=== PATIENT | female | born 1935 | race Caucasian/White ===

== ENCOUNTER 2017-09-19 09:39 | Outpatient (CLI) | payer MEDICARE ==
[~2017-09-19 09:39] MED LIST: ADV50100 PO; ALBU18HF2 PO; GABA-532 PO; LEVO50TA8 PO
[2017-09-19 10:18] LABS: BASOPHILS # (AUTO) 0.1 X10'3 (0-0.2); BASOPHILS % (AUTO) 1.1 % (0-1); EOSINOPHILS # (AUTO) 0.1 X10'3 (0-0.9); EOSINOPHILS % (AUTO) 1.7 % (0-6); LYMPHOCYTES # (AUTO) 1.7 X10'3 (1.1-4.8); MEAN CORPUSCULAR HEMOGLOBIN 31.6 PG (27.0-31.0); MEAN CORPUSCULAR HGB CONC 33.2 % (33.0-36.5); MEAN CORPUSCULAR VOLUME 95.2 FL (78-98); MEAN PLATELET VOLUME 9.4 FL (7.4-10.4); MONOCYTES # (AUTO) 0.2 X10'3 (0-0.9); MONOCYTES % (AUTO) 4.9 % (2-12); NEUTROPHILS # (AUTO) 2.6 X10'3 (1.8-7.7); NEUTROPHILS % (AUTO) 55.3 % (42-75); PLATELET COUNT 189 X10'3 (140-440); RED BLOOD COUNT 4.41 X10'6 (4.20-5.60); RED CELL DISTRIBUTION WIDTH 14.2 % (11.5-14.5); WHITE BLOOD COUNT 4.7 X10'3 (4.5-11.0)
[2017-09-19 10:22] LABS: CLARITY,URINE Cloudy (Clear); COLOR,URINE Yellow (Yellow); GLUCOSE, URINE Negative (Neg); KETONES,URINE Trace mg/dl (Neg); LEUKOCYTE ESTERASE ,URINE Trace (Neg); NITRITES, URINE Negative (Neg); OCCULT BLOOD,URINE Negative (Neg); PROTEIN,URINE Negative (Neg)
[2017-09-19 10:28] LABS: PROTHROMBIN TIME 10.4 SECONDS (9.0-12.0)
[2017-09-19 10:30] LABS: UA COLLECTION TYPE CLN CATCH MIDSTREAM
[2017-09-19 10:36] LABS: MUCUS STRANDS FEW /LPF (Neg); SQUAMOUS EPITHELIAL CELL,UR FEW /LPF (FEW)
[2017-09-19 10:36] LABS: ALANINE AMINOTRANSFERASE 19 U/L (12-78); ALBUMIN 3.8 G/DL (3.4-5.0); ALKALINE PHOSPHATASE 70 IU/L (46-116); ANION GAP 6 (8-16); ASPARTATE AMINO TRANSFERASE 17 U/L (10-37); BILIRUBIN,TOTAL 0.6 MG/DL (0.1-1.0); BLOOD UREA NITROGEN 8 MG/DL (7-18); BUN/CREATININE RATIO 11.4 (6.6-38.0); CALCIUM 9.7 MG/DL (8.5-10.1); CHLORIDE 104 MMOL/L (99-107); GLUCOSE 96 MG/DL (70-104); POTASSIUM 3.9 MMOL/L (3.5-5.1); SODIUM 141 MMOL/L (135-145); TOTAL CARBON DIOXIDE 31.1 MMOL/L (24-32); TOTAL PROTEIN 7.5 G/DL (6.4-8.2); eGFR 80 ML/MIN
[2017-09-19 10:37] LABS: BACTERIA,URINE FEW /HPF (Neg); RBC,URINE 0-2 /HPF (0-2); WBC,URINE 0-4 /HPF (0-4)
[2017-09-28] MEDS ORDERED: ASPI-1265 PO (09:50)
[2017-09-28] MEDS ORDERED: FISH12002 PO (11:28)
[2017-09-28] MEDS ORDERED: ASCO500C15 PO (11:28)
[2017-09-28] MEDS ORDERED: CHOL400T14 PO (11:28)
[2017-09-28] MEDS ORDERED: CYAN-19 PO (11:28)
== END 2017-09-19 23:59 | disposition home or self-care (01) ==
LOC: LAB 09:39
PROVIDERS: ATTEND Specialist
DX: Z01.818 Encounter for other preprocedural examination (principal); Z51.81 Encounter for therapeutic drug level monitoring; N39.0 Urinary tract infection, site not specified; J45.909 Unspecified asthma, uncomplicated
CPT/HCPCS: 36415; 80053; 81001; 85025; 85610; 87070; 87088

== ENCOUNTER 2017-10-02 10:53 | Inpatient (IN) | payer MEDICARE, OTHER ==
[2017-10-02] VITALS (17 sets, daily range): BP systolic 124–170; BP diastolic 65–95
[~2017-10-02] VITALS: Ht 170.2 cm; Wt 60.0 kg
[~2017-10-02 10:53] MED LIST changes: +ASCO500C15 PO; +ASPI-1265 PO; +CHOL400T14 PO; +CYAN-19 PO; +FISH12002 PO; +acetaminophen 325mg tablet PO ONE; +albuterol 2.5 MG/3 ML nebule NEB ONE; +ceFAZolin 2gm in dextrose, iso 100 ML IV ONE; +famotidine 20mg tablet PO ONE; +gabapentin 300mg capsule PO ONE; +metoclopramide 5 mg/ml inj IV ONE; +oxyCODONE SR 10mg (sust. release) tab PO ONE; +ringers solution, lacted 1,000 ML IV SCH; +tranexamic acid inj. 1,000 MG in normal saline 100ml IV soln 90 ML IV ONE
[2017-10-02] MEDS ORDERED: LIDOcaine 1% (10mg/ml) 2ml vial ONE (11:18)
[2017-10-02] MEDS ORDERED: bacitracin inj 150,000 UNIT in sodium chloride irrig. sol 3,000 ML IR ONE (12:00)
[2017-10-02] MEDS ORDERED: tranexamic acid inj. 1,000 MG in normal saline 100ml IV soln 90 ML IV ONE (12:15)
[2017-10-02] MEDS ORDERED: ROPIVAcaine 0.5% (5mg/ml) 30ml vial ONE (12:48)
[2017-10-02] MEDS ORDERED: MORPHINE SULFATE/PF 0.5 MG/ML 10ML AMPUL ONE (13:12)
[2017-10-02] MEDS ORDERED: MIDAZolam 1mg/ml 10ml vial ONE (13:12)
[2017-10-02] MEDS ORDERED: ringers solution, lacted 1,000 ML IV SCH (14:18)
[2017-10-02] MEDS ORDERED: naloxone 2mg/2ml inj 1.2 MG in normal saline 500ml IV soln 500 ML IV PRN (14:18)
[2017-10-02] MEDS ORDERED: ondansetron/PF 4mg/2ml inj IV PRN ×3 (14:20→15:35)
[2017-10-02] MEDS ORDERED: diphenhydrAMINE 50 mg/ml inj IV PRN (14:20)
[2017-10-02] MEDS ORDERED: meperidine/PF 25mg/ml syringe IV ONE (14:20)
[2017-10-02] MEDS ORDERED: acetaminophen 1,000mg/100ml IV 100 ML IV PRN (14:20)
[2017-10-02] MEDS ORDERED: proCHLORperazine 10 MG/2 ml inj IV PRN (14:20)
[2017-10-02] MEDS ORDERED: meperidine/PF 25mg/ml syringe IV PRN ×2 (14:20)
[2017-10-02] MEDS ORDERED: BUPIVAcaine/PF 2.5 mg/ml (0.25%) 30ml vial ONE (14:50)
[2017-10-02] MEDS ORDERED: dexamethasone sod phosphate 4mg/ml inj. ONE (14:50)
[2017-10-02] MEDS ORDERED: propofol inj 20 ML IV ONE ×2 (14:50)
[2017-10-02] MEDS ORDERED: ePHEDrine 50MG/ML INJ. ONE (14:52)
[2017-10-02] MEDS ORDERED: ceFAZolin 1000mg inj ONE (14:56)
[2017-10-02] MEDS ORDERED: HYDROmorphone 1 mg/ml syringe IV PRN (15:35)
[2017-10-02] MEDS ORDERED: acetaminophen 325mg tablet PO PRN ×2 (15:35→20:42)
[2017-10-02] MEDS ORDERED: albuterol 2.5 MG/3 ML nebule NEB PRN (15:35)
[2017-10-02] MEDS ORDERED: diphenhydrAMINE 25mg capsule PO PRN ×2 (15:35)
[2017-10-02] MEDS ORDERED: magnesium hydroxide 30ml (MOM) UD suspension PO PRN (15:35)
[2017-10-02] MEDS ORDERED: bisacodyl 10mg suppository rectal RC PRN (15:35)
[2017-10-02] MEDS ORDERED: cloNIDine hcl/PF 100mcg/ml inj ONE (15:42)
[2017-10-02] MEDS ORDERED: HYDROmorphone inj. 0.5 MG/0.5 ML DISP.SYRIN IV PRN (15:51)
[2017-10-02] MEDS: potassium cl 20mEq in 1/2 NS 1,000 ML IV SCH (18:01)
[2017-10-02] MEDS: cefazolin 1gm/NS 100mL 100 ML IV SCH (18:01)
[2017-10-02] MEDS: gabapentin 300mg capsule PO SCH (22:03)
[2017-10-02] MEDS: sennosides 8.6mg tablet PO SCH (22:03)
[2017-10-02] MEDS: acetaminophen 325mg tablet PO SCH (22:03)
[2017-10-02] MEDS: ascorbic acid 500mg tablet PO SCH (22:08)
[2017-10-03] MEDS: oxyCODONE IR 5mg (immed. release) tablet PO PRN ×4 (00:51→19:42)
[2017-10-03] MEDS: acetaminophen 325mg tablet PO SCH ×4 (00:51→19:42)
[2017-10-03] MEDS: cefazolin 1gm/NS 100mL 100 ML IV SCH (00:52)
[2017-10-03] MEDS: potassium cl 20mEq in 1/2 NS 1,000 ML IV SCH ×4 (00:52→19:40)
[2017-10-03 02:00] VITALS: BP 117/66
[2017-10-03 05:24] LABS: BASOPHILS % (AUTO) 0.3 % (0-1); EOSINOPHILS # (AUTO) 0.1 X10'3 (0-0.9); EOSINOPHILS % (AUTO) 1.2 % (0-6); LYMPHOCYTES # (AUTO) 0.6 X10'3 (1.1-4.8); LYMPHOCYTES % (AUTO) 11.8 % (21-51); MEAN CORPUSCULAR HEMOGLOBIN 31.5 PG (27.0-31.0); MEAN CORPUSCULAR HGB CONC 33.4 % (33.0-36.5); MEAN CORPUSCULAR VOLUME 94.2 FL (78-98); MEAN PLATELET VOLUME 9.8 FL (7.4-10.4); MONOCYTES # (AUTO) 0.3 X10'3 (0-0.9); NEUTROPHILS # (AUTO) 4.1 X10'3 (1.8-7.7); NEUTROPHILS % (AUTO) 81.7 % (42-75); PLATELET COUNT 126 X10'3 (140-440); RED BLOOD COUNT 3.51 X10'6 (4.20-5.60); RED CELL DISTRIBUTION WIDTH 13.9 % (11.5-14.5); WHITE BLOOD COUNT 5.1 X10'3 (4.5-11.0)
[2017-10-03 05:33] LABS: INR 1.6 INR; PROTHROMBIN TIME 16.1 SECONDS (9.0-12.0)
[2017-10-03 05:48] LABS: ANION GAP 6 (8-16); CHLORIDE 102 MMOL/L (99-107); POTASSIUM 4.9 MMOL/L (3.5-5.1); SODIUM 136 MMOL/L (135-145); TOTAL CARBON DIOXIDE 28.4 MMOL/L (24-32)
[2017-10-03 06:00] VITALS: BP 117/69
[2017-10-03] MEDS: multivitamins, therapeutics tablet PO SCH (07:28)
[2017-10-03] MEDS: levoTHYROXINE 25mcg tablet PO SCH (07:28)
[2017-10-03] MEDS: gabapentin 300mg capsule PO SCH ×3 (07:28→19:40)
[2017-10-03] MEDS: ascorbic acid 500mg tablet PO SCH ×2 (07:28→19:41)
[2017-10-03] MEDS ORDERED: warfarin 3mg tablet PO ONE (10:00)
[2017-10-03 11:00] VITALS: BP 93/49
[2017-10-03 15:00] VITALS: BP 99/45
[2017-10-03 18:00] VITALS: BP 110/61
[2017-10-03] MEDS: Protein Shake (high protein) 240ml (8oz) cup PO SCH (18:00)
[2017-10-03] MEDS: sennosides 8.6mg tablet PO SCH (21:00)
[2017-10-03 22:00] VITALS: BP 113/54
[2017-10-04] MEDS: oxyCODONE IR 5mg (immed. release) tablet PO PRN ×5 (00:30→18:03)
[2017-10-04] MEDS: acetaminophen 325mg tablet PO SCH ×3 (00:30→13:51)
[2017-10-04 06:00] VITALS: BP 121/61
[2017-10-04 06:52] LABS: BASOPHILS % (AUTO) 0.2 % (0-1); EOSINOPHILS # (AUTO) 0.1 X10'3 (0-0.9); EOSINOPHILS % (AUTO) 1.8 % (0-6); HEMATOCRIT 29.5 % (35.0-45.0); LYMPHOCYTES # (AUTO) 1.6 X10'3 (1.1-4.8); LYMPHOCYTES % (AUTO) 27.8 % (21-51); MEAN CORPUSCULAR HEMOGLOBIN 31.8 PG (27.0-31.0); MEAN CORPUSCULAR HGB CONC 33.9 % (33.0-36.5); MEAN CORPUSCULAR VOLUME 93.8 FL (78-98); MEAN PLATELET VOLUME 10.3 FL (7.4-10.4); MONOCYTES # (AUTO) 0.6 X10'3 (0-0.9); MONOCYTES % (AUTO) 11.3 % (2-12); NEUTROPHILS # (AUTO) 3.4 X10'3 (1.8-7.7); NEUTROPHILS % (AUTO) 58.9 % (42-75); PLATELET COUNT 115 X10'3 (140-440); RED BLOOD COUNT 3.15 X10'6 (4.20-5.60); RED CELL DISTRIBUTION WIDTH 13.7 % (11.5-14.5); WHITE BLOOD COUNT 5.7 X10'3 (4.5-11.0)
[2017-10-04 07:02] LABS: INR 3.9 INR; PROTHROMBIN TIME 38.8 SECONDS (9.0-12.0)
[2017-10-04] MEDS: potassium cl 20mEq in 1/2 NS 1,000 ML IV SCH (07:34)
[2017-10-04] MEDS: ascorbic acid 500mg tablet PO SCH ×2 (08:26→21:12)
[2017-10-04] MEDS: multivitamins, therapeutics tablet PO SCH (08:26)
[2017-10-04] MEDS: gabapentin 300mg capsule PO SCH ×3 (08:26→21:12)
[2017-10-04] MEDS: levoTHYROXINE 25mcg tablet PO SCH (08:27)
[2017-10-04] MEDS: Protein Shake (high protein) 240ml (8oz) cup PO SCH ×3 (08:30→18:00)
[2017-10-04 10:00] VITALS: BP 121/57
[2017-10-04] MEDS ORDERED: acetaminophen 325mg tablet PO PRN (15:35)
[2017-10-04 18:00] VITALS: BP 99/52
[2017-10-04] MEDS: sennosides 8.6mg tablet PO SCH (21:12)
[2017-10-04 23:00] VITALS: BP 123/71
[2017-10-05] MEDS: oxyCODONE IR 5mg (immed. release) tablet PO PRN ×3 (05:15→14:45)
[2017-10-05] MEDS: levoTHYROXINE 25mcg tablet PO SCH (05:26)
[2017-10-05 06:00] VITALS: BP 137/75
[2017-10-05 06:16] LABS: BASOPHILS % (AUTO) 0.3 % (0-1); EOSINOPHILS # (AUTO) 0.1 X10'3 (0-0.9); EOSINOPHILS % (AUTO) 1.9 % (0-6); HEMATOCRIT 29.1 % (35.0-45.0); HEMOGLOBIN 9.8 g/dl (12.0-16.0); LYMPHOCYTES # (AUTO) 1.2 X10'3 (1.1-4.8); LYMPHOCYTES % (AUTO) 23.3 % (21-51); MEAN CORPUSCULAR HEMOGLOBIN 31.8 PG (27.0-31.0); MEAN CORPUSCULAR HGB CONC 33.7 % (33.0-36.5); MEAN CORPUSCULAR VOLUME 94.3 FL (78-98); MONOCYTES # (AUTO) 0.6 X10'3 (0-0.9); MONOCYTES % (AUTO) 10.5 % (2-12); NEUTROPHILS # (AUTO) 3.4 X10'3 (1.8-7.7); PLATELET COUNT 114 X10'3 (140-440); RED BLOOD COUNT 3.09 X10'6 (4.20-5.60); RED CELL DISTRIBUTION WIDTH 14.2 % (11.5-14.5); WHITE BLOOD COUNT 5.3 X10'3 (4.5-11.0)
[2017-10-05 06:19] LABS: INR 2.3 INR; PROTHROMBIN TIME 23.4 SECONDS (9.0-12.0)
[2017-10-05] MEDS: Protein Shake (high protein) 240ml (8oz) cup PO SCH ×2 (08:57→13:00)
[2017-10-05] MEDS: ascorbic acid 500mg tablet PO SCH (09:01)
[2017-10-05] MEDS: gabapentin 300mg capsule PO SCH ×2 (09:02→13:16)
[2017-10-05] MEDS: multivitamins, therapeutics tablet PO SCH (09:02)
[2017-10-05 10:00] VITALS: BP 134/61
== END 2017-10-05 13:30 | DRG 469 ==
LOC: PAS IN 10:53 → EDSTATUS 14:00 → ORTHO 4S 16:55
PROVIDERS: ADMIT Specialist; ATTEND Specialist
PROC: 3E0T3BZ Introduction of Anesthetic Agent into Peripheral Nerves and Plexi, Percutaneous Approach (ICD-10-PCS; 2017-10-02)
PROC: 0MNP0ZZ Release Left Knee Bursa and Ligament, Open Approach (ICD-10-PCS; 2017-10-02)
PROC: 0SRD0J9 Replacement of Left Knee Joint with Synthetic Substitute, Cemented, Open Approach (ICD-10-PCS; principal; 2017-10-02 13:00)
DX: M17.12 Unilateral primary osteoarthritis, left knee (principal); E43 Unspecified severe protein-calorie malnutrition; L89.152 Pressure ulcer of sacral region, stage 2; G62.9 Polyneuropathy, unspecified; Z99.81 Dependence on supplemental oxygen; D62 Acute posthemorrhagic anemia; G51.0 Bell's palsy; E03.9 Hypothyroidism, unspecified; J45.909 Unspecified asthma, uncomplicated; Z96.642 Presence of left artificial hip joint; Z88.2 Allergy status to sulfonamides; Z91.012 Allergy to eggs; Z91.018 Allergy to other foods; Z79.899 Other long term (current) drug therapy; Z79.82 Long term (current) use of aspirin; Z87.891 Personal history of nicotine dependence; Z68.20 Body mass index [BMI] 20.0-20.9, adult
CPT/HCPCS: 36415; 73560; 80051; 85025; 85610; 94640; 94760; 97110; 97116; 97161; 97530; A4615; A6212; A6449; A6455; A7000; C1713; C1758; C1776; J0690; J0735; J1100; J1170; J2250; J2274; J2405; J2704; J2795; J3490; J7120

== ENCOUNTER 2018-02-13 08:51 | Outpatient (CLI) | payer MEDICARE ==
[~2018-02-13 08:51] MED LIST changes: -acetaminophen 325mg tablet PO ONE; -albuterol 2.5 MG/3 ML nebule NEB ONE; -ceFAZolin 2gm in dextrose, iso 100 ML IV ONE; -famotidine 20mg tablet PO ONE; -gabapentin 300mg capsule PO ONE; -metoclopramide 5 mg/ml inj IV ONE; -oxyCODONE SR 10mg (sust. release) tab PO ONE; -ringers solution, lacted 1,000 ML IV SCH; -tranexamic acid inj. 1,000 MG in normal saline 100ml IV soln 90 ML IV ONE
[2018-02-13 09:47] LABS: CLARITY,URINE SLIGHTLY CLOUDY (Clear); COLOR,URINE YELLOW (Yellow); GLUCOSE, URINE NEGATIVE (Neg); KETONES,URINE NEGATIVE (Neg); LEUKOCYTE ESTERASE ,URINE NEGATIVE (Neg); NITRITES, URINE NEGATIVE (Neg); OCCULT BLOOD,URINE NEGATIVE (Neg); PROTEIN,URINE TRACE mg/dl (Neg); UROBILINOGEN,URINE 0.2 E.U/dL (0.2-1.0)
[2018-02-13 09:48] LABS: UA COLLECTION TYPE CLN CATCH MIDSTREAM
[2018-02-13 09:50] LABS: BASOPHILS # (AUTO) 0.1 X10'3 (0-0.2); BASOPHILS % (AUTO) 1.3 % (0-1); EOSINOPHILS # (AUTO) 0.4 X10'3 (0-0.9); EOSINOPHILS % (AUTO) 9.4 % (0-6); HEMATOCRIT 39.6 % (35.0-45.0); HEMOGLOBIN 13.3 g/dl (12.0-16.0); LYMPHOCYTES # (AUTO) 1.8 X10'3 (1.1-4.8); LYMPHOCYTES % (AUTO) 38.9 % (21-51); MEAN CORPUSCULAR HEMOGLOBIN 31.3 PG (27.0-31.0); MEAN CORPUSCULAR HGB CONC 33.6 % (33.0-36.5); MEAN CORPUSCULAR VOLUME 93.2 FL (78-98); MEAN PLATELET VOLUME 9.6 FL (7.4-10.4); MONOCYTES # (AUTO) 0.2 X10'3 (0-0.9); MONOCYTES % (AUTO) 4.3 % (2-12); NEUTROPHILS # (AUTO) 2.1 X10'3 (1.8-7.7); NEUTROPHILS % (AUTO) 46.1 % (42-75); PLATELET COUNT 157 X10'3 (140-440); RED BLOOD COUNT 4.24 X10'6 (4.20-5.60); WHITE BLOOD COUNT 4.6 X10'3 (4.5-11.0)
[2018-02-13 09:56] LABS: PROTHROMBIN TIME 10.4 SECONDS (9.0-12.0)
[2018-02-13 09:59] LABS: BACTERIA,URINE NONE SEEN /HPF (Neg); RBC,URINE 0-2 /HPF (0-2); SQUAMOUS EPITHELIAL CELL,UR FEW /LPF (FEW); WBC,URINE 0-4 /HPF (0-4)
[2018-02-13 10:22] LABS: ALANINE AMINOTRANSFERASE 18 U/L (12-78); ALBUMIN 3.7 G/DL (3.4-5.0); ALKALINE PHOSPHATASE 62 IU/L (46-116); ANION GAP 5 (8-16); ASPARTATE AMINO TRANSFERASE 13 U/L (10-37); BILIRUBIN,TOTAL 0.6 MG/DL (0.1-1.0); BLOOD UREA NITROGEN 19 MG/DL (7-18); BUN/CREATININE RATIO 26.8 (6.6-38.0); CALCIUM 9.5 MG/DL (8.5-10.1); CHLORIDE 104 MMOL/L (99-107); CREATININE 0.71 MG/DL (0.40-0.90); GLUCOSE 96 MG/DL (70-104); POTASSIUM 3.7 MMOL/L (3.5-5.1); SODIUM 141 MMOL/L (135-145); TOTAL CARBON DIOXIDE 31.9 MMOL/L (24-32); TOTAL PROTEIN 7.3 G/DL (6.4-8.2); eGFR 79 ML/MIN
== END 2018-02-13 23:59 | disposition home or self-care (01) ==
LOC: LAB 08:51
PROVIDERS: ATTEND Specialist
DX: Z01.818 Encounter for other preprocedural examination (principal); Z51.81 Encounter for therapeutic drug level monitoring; N39.0 Urinary tract infection, site not specified; J45.909 Unspecified asthma, uncomplicated; Z87.891 Personal history of nicotine dependence
CPT/HCPCS: 36415; 80053; 81001; 85025; 85610; 87070